=== PATIENT | male | born 1960 | race Caucasian/White ===

== ENCOUNTER 2019-07-09 21:25 | Inpatient (IN) | payer OTHER ==
[~2019-07-09 21:25] MED LIST: Iopamidol-370 76% 500 ML 1 ML ONE
[2019-07-09 22:05] LABS: #Basophils 0.1 thou/uL (0.0-0.2); #Eosinphils 0.5 thou/uL (0.0-0.7); #Lymphocytes 3.1 thou/uL (1.20-3.40); #Monocytes 1.2 thou/uL (0.11-0.59); #Neutrophils 7.8 thou/uL (1.40-6.50); %Basophils 0.9 % (0.0-1.0); %Eosinophils 3.8 % (0.0-10.0); %Lymphocytes 24.7 % (21.0-51.0); %Monocytes 9.2 % (0.0-10.0); %Neutrophils 61.4 % (42.0-75.0); Hemoglobin 15.6 g/dL (14.0-18.0); Mean Corpuscular HGB CONC 32.6 g/dL (32.0-36.0); Mean Corpuscular Hemoglobin 31.1 pg (27.0-31.0); Mean Corpuscular Volume 95.4 fL (78.0-98.0); Mean Platelet Volume 7.9 fL (7.4-10.4); Platelet Count 507 thou/uL (130-400); RBC Distribution Width 11.8 % (11.5-14.5); Red Blood Cell (RBC) Count 5.02 mill/uL (4.70-6.10); White Blood Cell (WBC) Count 12.6 thou/uL (4.8-10.8)
[2019-07-09 22:25] LABS: ALT (SGPT) 13 U/L (8-55); AST (SGOT) 21 U/L (5-34); Albumin 3.9 g/dL (3.5-5.0); Alkaline Phosphatase 71 U/L (40-110); Anion Gap 13 mmol/L (10-20); BUN (Urea Nitrogen) 12 mg/dL (8.4-25.7); Bilirubin, Total 0.5 mg/dL (0.2-1.2); Calc. Creatinine Clearance 0 mL/min (70-130); Calcium 10.8 mg/dL (7.8-10.44); Carbon Dioxide 25 mmol/L (22-29); Chloride 102 mmol/L (98-107); Estimated GFR-MDRD 82; Globulin 4.3 g/dL (2.4-3.5); Glucose 78 mg/dL (70-105); Potassium 4.1 mmol/L (3.5-5.1); Protein, Total 8.2 g/dL (6.0-8.3); Sodium 136 mmol/L (136-145)
[2019-07-09] MEDS ORDERED: Ondansetron PF 4 MG/2 ML Vial ONE (22:29)
[2019-07-09 22:46] LABS: INR-International Normal Ratio 1.1; PTT 45.5 SEC (22.9-36.1); Prothrombin Time 14.4 SEC (12.0-14.7)
--- NOTE | 2019-07-09 22:46 | RAD ---
EXAM: Two views chest PROVIDED CLINICAL HISTORY: Cough COMPARISON: 10/25/2006. FINDINGS: There is dense opacity seen within the right upper lung zone with shift of the mediastinal structures to the right. There is question of spiculated density in the right infrahilar region. There is elevation of the lateral right hemidiaphragm which could be related to right pleural effusion versus pleural and parenchymal scarring. The left lung is clear. The cardiac silhouette is at the upper limits of normal in size. Surgical cl ips overlie the right upper quadrant. No other interval change. IMPRESSION: Opacification right mid and upper lung zones with shift of mediastinal structures to the right. There is question of spiculated density at the right lung base, and there is elevation the right lateral hemidiaphragm with blunting the right lateral costophrenic angle. While findings could be related to postsurgical changes and scarring, a right hilar mass with postobstructive changes right upper lung zone are a possibility. Correlation with history is recommended. If more recent chest x-rays are avai lable for comparison, this would be helpful. However, if no recent prior studies are available for comparison, CT thorax is recommended.
[2019-07-09 23:00] LABS: CK (CPK) 79 U/L (30-200); Lipase 11 U/L (8-78)
--- NOTE | 2019-07-09 23:58 | CT ---
CT NECK WITH IV CONTRAST: HISTORY: Hemoptysis. Generalized weakness. Decreased appetite for one month. The patient reports a recent diag nosis of pneumonia. COMPARISON: None. FINDINGS: The bilateral parotid glands and submandibular glands demonstrate a normal CT appearance. The thyroid gland is normal in appearance. The prevertebral space as well as parapharyngeal spaces have a normal appearance. Carotid spaces are normal in appearance bilaterally. The pharynx and hypopharynx have a normal appearance. No enlarged lymph nodes are seen by CT size criteria within the neck bilaterally. There is complete opacification of the left maxillary antrum. There is generalized heterogeneity with a mass-like appearance involving the right upper lung zone. A n aerated lung is not seen in the right lung apex. Enlarged right paratracheal lymph nodes are seen, each measuring 1.8 cm in short axis dimension. The visualized left upper lobe is clear. IMPRESSION: 1. Mass-like heterogeneity occupying the visualized right upper lung zone with low density areas as w ell as areas of increased density. This area is incompletely imaged or evaluated. Please see CTA ches t for further details. Findings are worrisome for a neoplastic process with lymphadenopathy in a righ t paratracheal location. 2. No mass or lymphadenopathy is seen in the neck bilaterally. 3. Complete opacification of the left maxillary antrum. POS: [facility]
--- NOTE | 2019-07-10 00:14 | CT ---
CT ANGIOGRAM THORAX WITH IV CONTRAST AND 3D RECONSTRUCTIONS: HISTORY: Hemoptysis and generalized weakness. Decreased appetite for one month. FINDINGS: There is a mass-like density seen within the right upper lobe and in the right hilar region, and no a erated lung is seen within the right lung apex. Findings are worrisome for a neoplastic process with post obstructive changes. There are low density areas seen within the area of mass like density in th e right lung apex. Post obstructive infectious process could not be entirely excluded. The right sandie r mass-like density measuring 6.6 cm in maximal dimensions, and the right upper lobe bronchus is not visualized secondary to this mass. As noted on the CT scan of the neck also obtained on this date, there are enlarged right paratracheal lymph nodes seen, the largest measuring 2.2 cm in short axis dimension. Mass-like density in the rig ht hilar region does extend into the precarinal region. There is a small to moderate sized pericardial effusion identified. There is decreased density seen p osterior to the level of the left atrium, which extends inferiorly ad may represent a prominent peric ardial recess or pericardial cystic structure. There is volume loss present in the right lower lobe. The left lung is clear without evidence of a mass, pulmonary nodule or consolidation. The right upper lobe pulmonary artery is severely attenuated and likely occluded due to the right hil ar mass. There are otherwise no filling defects seen within the pulmonary arteries to suggest a pulmo nary embolus. The thoracic aorta is normal in caliber without evidence of aortic dissection. Vascular calcification s are seen scattered within the thoracic aorta. There is an enlarged right axillary lymph node measuring 1.5 cm in short axis dimension. The visualized upper abdomen demonstrates post surgical changes of the liver with mild enlargement of the left hepatic lobe. There is an enlarged axillary lymph node seen inferiorly, measuring 1.5 cm in short axis dimension. IMPRESSION: 1. Right hilar mass, which extends into the right upper lobe. the most superior extent is difficult t o delineate. However, this mass measures at least 6.6 cm in AP dimensions. There are post obstructive changes involving the right upper lobe and right lung apex with low density areas seen in the consol idated right lung apex. Findings are likely related to post obstructive changes and post obstructive infectious process cannot be entirely excluded. 2. Mediastinal lymphadenopathy with enlarged right axillary lymph node. 3. Severe attenuation and likely amputation\occlusion of the right upper lobe pulmonary artery. There is otherwise no filling defects to suggest a pulmonary embolus. 4. Small to moderate pericardial effusion. 5. Low density area seen posterior to the lower portion of the left atrium, within the mediastinum. T his may represent a pericardial cystic structure. 6. Atelectasis right lung base. 7. Post surgical changes of the liver with hypertrophy of the left hepatic love. POS: [facility]
--- NOTE | 2019-07-10 00:27 | CT ---
CT ABDOMEN AND PELVIS WITH IV CONTRAST: HISTORY: Hemoptysis and generalized weakness with decreased appetite. COMPARISON: Noncontrast CT abdomen and pelvis on 03/26/2015. FINDINGS: As noted on prior examination, there is a moderate sized pericardial effusion with low density struct ure seen in the posterior mediastinum, to the right of midline, which was also seen on the prior stud y but larger in size on today's exam. This could be related to a pericardial cystic lesion. Again noted are post surgical changes involving the right hepatic lobe with compensatory hypertrophy involving the left hepatic lobe. There is a lobulated contour of the liver, which could be related to cirrhosis. There is a subtle low density area seen within the left hepatic lobe, medially, which was better delineated on the prior noncontrasted exam but is smaller in size, measuring 1.2 cm. An addit ional discrete hepatic lesion is not appreciated. There is an enlarged pre-caval lymph node seen in the region of the miguel hepatis which measures 4.7 cm x 2.9 cm. To the right of and immediately adjacent to this enlarged lymph node and inferior to the liver is a hypodense collection that measures 7.3 cm x 4.3 cm which does not demonstrate fluid atten uation. This was not seen on the prior exam, and the exact etiology is uncertain. This does result in slight mass effect on the adjacent loops of small bowel without obstruction. The spleen is surgically absent. The tail of the pancreas is atrophic or surgically absent as well. The bilateral adrenal glands have a normal CT appearance. There is cortical scarring involving the mid portion and inferior pole right kidney with atrophy of a portion of the right kidney. Mild scarring is seen at the inferior pole left kidney. Vascular calcifications are seen in the abdominal aorta and iliac arteries. The urinary bladder has a normal CT appearance. The appendix is visualized and normal in caliber. Increased density material is seen within the appen yue. Degenerative changes are seen in the spine. No suspicious lytic or sclerotic osseous lesions are iden tified. IMPRESSION: 1. Lymphadenopathy in a pre-caval location, in the region of miguel hepatis with closely adjacent mild ly increased density fluid collection. This increased density fluid collection is of uncertain etiolo gy but measures 7.3 cm in maximal dimensions. 2. Post surgical changes, right hepatic lobe, with compensatory hypertrophy involving the left hepati c lobe and caudate lobe of the liver. There is a lobulated appearance of portions of the liver which could be secondary to post surgical changes but cirrhosis is not entirely excluded. 3. Scarring involving the kidneys bilaterally, greater on the right, with atrophy of a portion of the right kidney. 4. Small to moderate sized pericardial effusion. There is a small fluid density structure in the post erior mediastinum, to the right of midline, just inferior to the level of the left atrium. This was a lso present on the prior exam but this has increased in size compared to the prior study. 5. Post surgical changes related to splenectomy and cholecystectomy as well as wedge resection involv ing the right hepatic lobe. The tail of the pancreas is also likely surgically absent or atrophic. 6. Volume loss, right lung base. Above findings, including CTA chest, were discussed with Dr. Frias in the emergency department on 07/10/2019 at 0003 hours. POS: [facility]
[2019-07-10] MEDS ORDERED: Acetaminophen 325 MG TAB PO PRN (02:14)
[2019-07-10] MEDS ORDERED: Albuterol Sulfate 2.5 mg/3 ml Neb NEB PRN (02:16)
--- NOTE | 2019-07-10 03:32 | HP ---
PRIMARY CARE PHYSICIAN: Vidal Villalpando MD Patient's local oncologist, Dr. Cortes. Patient's medical oncologist, Dr. Lorenzo, at [facility]. CHIEF COMPLAINT: Intermittent hemoptysis times weeks, fatigue, weakness, anorexia. HISTORY OF PRESENT ILLNESS: A 58-year-old male with past medical history of pancreatic metastatic neuroendocrine cancer diagnosed in 2006, who thereafter underwent chemotherapy for 13 months with 5-FU and "cahto" with extensive surgery in August 2008 and subsequent cancer recurrence one year later, who has been on and off chemotherapeutic agents, most recently discontinued off oral capecitabine and oral temozolomide in February [address] chest, abdomen, pelvis at that time revealed progression of metastatic disease, who presents to [facility] ER for several week history of intermittent teaspoon-sized hemoptysis that worsened today up to 10 episodes and prodromal complaints of dyspnea, cough, fatigue, generalized weakness anorexia, constipation, and 20-30 pounds weight loss in the past several weeks, prompting further ED evaluation. The patient reports seeing his primary care physician several weeks ago and being diagnosed with bronchitis and with repeated evaluation of PCP and completing a two week course of oral antibiotics, unknown type, with no significant improvement in patient's symptoms. In the emergency room, H and H were 15.6 and 47.9 with INR of 1.1 and normal oxygen saturation. One-view chest x-ray suggested opacifications of the right mid and upper lung zone with mediastinal shift to the right. A followup CTA chest and thorax revealed a masslike density in the right upper lobe and in the right hilar region with no aerated lung seen within the right lung apex, worrisome for a neoplastic process with postobstructive changes and with hilar mass-like density measuring 6.6 cm in maximal dimensions with nonvisualization of right upper lobe bronchus, as well as enlarged paratracheal lymph nodes with largest measuring 2.2 cm, as well as a small to moderate size pericardial effusion. CT abdomen and pelvis on 07/09/2019 revealed lymphadenopathy in the precaval location in the region of the miguel hepatis, measuring 4.7 x 2.9 cm with an inferior hypodense collection 7.3 cm x 4.3 cm without fluid attenuation. Lastly, CT soft tissue neck suggested no mass or lymphadenopathy in bilateral neck region and redemonstration of mass-like heterogeneity in the right upper lung zone, worrisome for neoplastic process with lymphadenopathy in the right paratracheal location. On-call dust collector ore crushing was consulted and the patient admitted as inpatient status and placed on threat monitoring analyst for further evaluation. At bedside, the patient is accompanied by his spouse, who corroborates history. He underwent a CT chest, abdomen, pelvis on 03/01/2019, by Medical Oncologist Dr. Lorenzo at [facility] with report shown to me on phone with noted pulmonary nodules but no right hilar mass structure seen at that time. Unchanged fluid collection with approximately similar dimensions in abdomen was noted at that time. The patient reports inability to see his oncologist in June due to scheduling conflicts and has next appointment scheduled in August 2019. He reports no recent PET scan. He denies any complaints of near syncope or syncope. He denies any use of home oxygen. He does not have advanced directives and states he will need to discuss this with his spouse, who is at bedside. His spouse is a surrogate decision maker. 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 PAST SURGICAL HISTORY: Extensive surgical resection in August 2008 for cancer , postoperative small bowel obstruction. SOCIAL HISTORY: The patient admits to prior tobacco and alcohol use, stopping 21/12. He denies any current tobacco use. He is ambulatory without assistive device. He does not use home oxygen. ALLERGIES: PENICILLIN. REVIEW OF SYSTEMS: Pertinent positives as per HPI. Remainder of review of systems negative. The patient reports having black tarry stools noted several days ago , but none currently. HOME MEDICATIONS: Reviewed as per admission medication reconciliation once this is appropriately reconciled. FAMILY HISTORY: Dad from lung cancer. The patient's sister has unspecified cancer. PHYSICAL EXAMINATION: VITAL SIGNS: Temperature 98.5, pulse 115, sinus tachycardia, blood pressure 110 /70 to 130/76, oxygen saturation 92% to 94% on room air, 97% on 2 L nasal cannula. Respirations 18 to 20, unlabored. GENERAL APPEARANCE: An elderly male, who is awake, alert, oriented, coherent, lucid, not in any obvious distress, speaking in full complete sentences. HEENT: Normocephalic, atraumatic. No facial asymmetry. Mucous membranes appear moist. NECK: Supple. No palpable adenopathy. CARDIOVASCULAR: S1, S2. Tachycardic. No harsh murmurs. No reproducible chest wall tenderness. LUNGS: Nonlabored respiration on bilateral posterior auscultation. There is decreased breath sounds in the right lung with no expiratory wheezing noted. ABDOMEN: Soft, mildly distended. Nontender to palpation. EXTREMITIES: No edema, cyanosis, or deformities noted. SKIN: Warm to touch without rash or pallor or abrasion. LABORATORY DATA: Troponin negative x1. WBC 12.6, H and H 15.6/47.9, platelets 507. Sodium 136, potassium 4.1, chloride 102, bicarb 25, glucose 78, BUN and creatinine 12/0.84, GFR 82. LFTs unremarkable. Lipase 11. Troponin negative. BNP 16. IMAGING DATA: 1. Chest x-ray AP, lateral notes opacification in the right mid and upper lung zones with a shift of mediastinal structures to the right with a question of spiculated density in the right lung base and elevation of the right lateral hemidiaphragm with blunting of the right lateral costophrenic angle. 2. CTA chest, thorax reveals a right hilar mass extending into the right upper lobe wi th the most superior extent difficult to delineate. Mass measures at least 6.6 cm in anterior-posterior dimensions. Postobstructive changes involving the right upper lobe and right lung apex with a low-density area seen in the right lung apex. Mediastinal lymphadenopathy. Wcolt-ct-rodwdbiv pericardial effusion. Severe attenuation likely amputation in the right upper lobe pulmonary artery with no filling defect to suggest PE. Suggestive of pericardial cystic structure. 3. CT abdomen and pelvis 07/09/2019, reveals precaval lymphadenopathy 4.7 x 3 cm. Inferior to liver is hypodense area of 7.3 x 4.3 cm. Remainder of findings noted. ASSESSMENT: 1. Hemoptysis, suspected secondary to metastatic pancreatic neuroendocrine cancer with new right upper lob obstructing lung mass. The patient was admitted as inpatient status. CTA chest and thorax results noted. Loom Changeover Operator consulted for further evaluation. Hold patient's home aspirin 81 mg. Noted concerns of obstructing right upper lobe mass with concerns for postobstructive areas. Start p.r.n. nebulized bronchodilators. Await Pulmonology recommendations for medication optimization and to assess for need of any possible bronchoscopy to evaluate for endovascular lesions or bleeding. Monitor serial H and H. 2. Metastatic pancreatic neuroendocrine cancer. The patient follows with oncologist at [facility], Dr. Lorenzo, and locally Dr. Cortes. He reports diagnosis in 2006, requiring 13 months of chemotherapy with extensive surgery in August 2008 and tumor recurrence one year later and has been on and off therapies. Most recently discontinued of oral capecitabine and oral temozolomide in February 2019. His last CT chest, abdomen, pelvis was done on 03/01/2019. He has not had a PET scan in sometime. We will consult the patient's local oncologist to discuss prognosis and potential palliative treatment options for an outpatient basis, as well as coordinate any outpatient imaging test. 3. Sinus tachycardia, likely reactive to #1 and #2. Monitor oxygen levels for appropriate saturation. 4. Possible post obstructive pneumonia. The patient recently completed a course of oral antibiotics, unknown type. He is noted to have penicillin allergy. We will await pulmonology input regarding need for additional antibiotic therapies for temporizing measures. 5. History of diabetes mellitus. 6. History of dyslipidemia. Deep venous thrombosis prophylaxis, SCDs. Avoid chemical anticoagulation due to hemoptysis. Code status: Full code as discussed with the patient. The patient does not have any advanced directives and will discuss with his spouse. His spouse, Nyasia , is surrogate decision maker. Check a.m. labs. DISPOSITION: Inpatient telemetry admission. Job ID: [id number] [facility]
[2019-07-10] MEDS ORDERED: Ondansetron PF 4 MG/2 ML Vial IVP PRN (07:31)
[2019-07-10] MEDS ORDERED: Ondansetron ODT 4 MG TAB PO PRN (07:31)
[2019-07-10] MEDS ORDERED: HYDROcodone/Acetaminophen 5/325 mg Tablet PO PRN (07:31)
[2019-07-10] MEDS ORDERED: HYDROcodone/Acetaminophen 7.5/325 mg Tablet PO PRN (07:31)
[2019-07-10] MEDS ORDERED: Melatonin 3 MG TAB PO PRN (07:33)
[2019-07-10] MEDS ORDERED: Benzonatate 100 MG CAP PO PRN (07:33)
[2019-07-10] MEDS ORDERED: diphenhydrAMINE 25 MG CAP PO PRN (07:33)
[2019-07-10] MEDS ORDERED: Docusate 100 MG CAP PO PRN (07:33)
[2019-07-10] MEDS ORDERED: Labetalol HCl 100 MG/20 ML VIAL SLOW IVP PRN (07:33)
[2019-07-10] MEDS ORDERED: Famotidine/PF 20 mg/2ml Vial SLOW IVP SCH (09:00)
[2019-07-10] MEDS ORDERED: Famotidine/PF 20 mg/2ml Vial ONE (09:26)
--- NOTE | 2019-07-10 10:14 | CON ---
DATE OF CONSULTATION: HISTORY OF PRESENT ILLNESS: Regino Griffin is a 58-year-old gentleman who sees [facility] for metastatic pancreatic cancer who presented with almost a month history of hemoptysis. He saw his primary care physician where several sets of chest x-ray were taken, which showed pneumonia. He was given antibiotics. Hemoptysis persisted. He came in last night with more blood, maybe several tablespoon. He has received chemotherapy at [facility]. His last CT imaging studies in February 2019 showed evidence of metastatic disease. He is due to have to have further workup done in last week when he apparently he did not make it up there. Former smoker, quit smoking many years ago, pack a day for 30 years. Denies any fever or chills. He has had neuroendocrine pancreatic cancer, status post resection in 2006 followed by chemotherapy. He denies any weight loss. PAST MEDICAL HISTORY: Pertinent for: 1. Metastatic pancreatic neuroendocrine cancer. 2. Diabetes. PREVIOUS SURGERIES: Bowel resection, pancreatic cancer surgery. 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 No alcohol abuse. Home medicine unknown at this time. ALLERGIES: TO PENICILLIN. REVIEW OF SYSTEMS: Otherwise, unremarkable. PHYSICAL EXAMINATION: GENERAL: He is in no distress, sitting on the side of the bed, sats 95%, pulse 80, blood pressure CHEST: No wheezing, crackles. CARDIAC: Normal S1, S2. ABDOMEN: Negative mass. LABORATORY DATA: White count 12,000, H is H is 15 and 47, platelet count is 507. Lytes are normal. Calcium is 10.8, slightly elevated. Albumin is normal. Chest x-ray shows a large right upper lung mass. CT of the abdomen and pelvis adenopathy in the miguel hepaticus area. Postsurgical changes, scarring in the kidneys, moderate-size pericardial effusion, status post splenectomy, cholecystectomy. CT chest shows mediastinal adenopathy, right hilar mass, right upper lobe atelectatic mass 6 cm. Again noted was several mediastinal adenopathy. Soft tissue neck CT was done. No PE was seen. IMPRESSION: 1. Metastatic neuroendocrine disease to the lung and miguel hepatic area. 2. Diabetes. 3. Former smoker. PLAN: The patient was given option to be transferred to [facility]. bronchoscopy locally. Appeared to be stable to be transferred out of this area to [facility] if he wants further workup there since his primary doctor is over there. In the meantime, supportive care. Await input from Oncology. Consultation note, 70 minutes, 50% direct patient care. Job ID: [id number]
[2019-07-10] MEDS ORDERED: Loratadine 10 MG TAB PO PRN (14:17)
--- NOTE | 2019-07-10 14:22 | PDOC.EVN ---
Event Note - Event Note Event Note: Seen and examined in the emergency department. Went over home medications, home medications added. Some diabetes medications that we do not cover in hospital I have even the okay that he may take his home medication. There does not appear to be any acute bronchitis or pneumonia. Patient breathing comfortably on room air. At this point patient would like to follow up with his oncologist at [facility] is not interested in any aggressive measures, surgeries, or bronchoscopy's here in acute care hospital at this time. Anticipate discharge in the next 24 hours if okay with pulmonology and oncology.
[2019-07-10] MEDS ORDERED: metFORMIN 500 MG TAB PO SCH (17:00)
[2019-07-10] MEDS ORDERED: Metoprolol Tartrate 25 MG TAB PO SCH (21:00)
[2019-07-10] MEDS ORDERED: Rosuvastatin 10 MG TAB PO SCH (21:00)
[2019-07-10] MEDS ORDERED: Tamsulosin HCl 0.4 MG CAP PO SCH (21:00)
--- NOTE | 2019-07-11 03:42 | DIS ---
DATE OF ADMISSION: 07/10/2019 DATE OF DISCHARGE: 07/10/2019 REASON FOR HOSPITALIZATION: Blood tinge in sputum. SIGNIFICANT FINDINGS: The patient was found to have newly diagnosed advancement of his known cancer with a newly found right hilar mass measuring 6.6 cm in AP dimensions. PROCEDURES PERFORMED AND TREATMENTS RENDERED: The patient having CT scans of the chest-please see full report for details, CT scans of the abdomen and pelvis-please see full report for details, and CT scans of the neck-please see full report for details. The patient having extensive chronic changes from known history of pancreatic neuroendocrine cancer and he is followed up well with his oncologist at [facility]. The patient has recently been diagnosed with bronchitis by his primary care physician and completed a course of antibiotics. With the patient completing a course of antibiotics, he has resolved his bronchitis. The patient's WBC count is 12, which is at the high end of normal. The patient is not having any anemia and his hemoglobin is 15.6. Although patient is having a small amount of blood tinge to his cough and sputum, it is not significant to the point where he is having any anemia. The patient is breathing comfortably on room air. The patient is talking in full sentences and it does not cause him any discomfort at baseline, and the patient is eating and drinking fine. The patient's platelet count is stable at 507. The patient does not have any coagulopathy and his PT is 14.4, his INR is 1.1, his PTT is normal at 45.5. The patient had a complete metabolic panel, which demonstrated preserved electrolytes and normal renal function with a creatinine of 0.94. The patient with normal liver function tests. The patient with negative cardiac enzymes. The patient with normal lipase. The patient was seen and evaluated by lecturer of portuguese-please see full consultation note from Dr. Gunter for details. Dr. Gunter agrees that the patient has good followup with his primary oncologist and pulmonology team at [facility], and he should follow up with them for future care. The patient was able to call into his oncologist and he has an appointment for tomorrow on 07/11/2019 with his oncologist at [facility]. Given this new information, the patient was recommended safe for discharge with close followup with his primary oncology team at [facility] tomorrow. Again, there is no reason for acute hospitalization that would warrant further inpatient therapy. The patient is breathing on room air and not requiring supplemental oxygen. The patient is talking in full sentences. The patient is able to eat and drink without nausea or vomiting. The patient does not have any acute bronchitis or pneumonia as identified on CT scan of the chest and he does not need any further antibiotic or steroid therapy. Based on all of these findings, the patient was recommended safe for discharge to follow up tomorrow at [facility] with his oncologist. Given the fact that the patient has a newly identified tumor that has grown in the past 4 months, his oncologist may pursue further measures that might include chemotherapy, radiation, or even surgery. I recommended to the patient that he follow up with Dr. Lorenzo at [facility] tomorrow at his scheduled appointment. The patient states that he will comply with followup and see what Dr. Lorenzo could do to help him. CONDITION ON DISCHARGE: Stable. SPECIFIC INSTRUCTIONS FOR THE PATIENT/FAMILY: 1. The patient is recommended to follow up at his appointment tomorrow at [facility] with his oncologist, Dr. oLrenzo. 2. The patient is recommended to follow up with primary care physician in the next 5 to 7 days. 3. The patient is recommended to take all home medications as directed. 4. The patient is recommended to return to acute care hospital immediately if signs or symptoms return, worsen, or any other new symptoms occur. DISCHARGE MEDICATIONS: Please see full discharge medication list for details and there were no new prescriptions generated. Greater than 35 minutes spent coordinating care and discharge process for this patient. Job ID: [id number]
[2019-07-11] MEDS ORDERED: Fenofibrate Nanocrystallized 145 MG TAB PO SCH (09:00)
== END 2019-07-10 15:28 | disposition home or self-care (01) | DRG 181 ==
LOC: ERS 21:25 → ERHOLD 07-10 00:38
PROVIDERS: ADMIT Hospitalist; ATTEND Hospitalist
DX: C78.01 Secondary malignant neoplasm of right lung (principal); C25.9 Malignant neoplasm of pancreas, unspecified; C7A.1 Malignant poorly differentiated neuroendocrine tumors; C78.7 Secondary malignant neoplasm of liver and intrahepatic bile duct; E13.9 Other specified diabetes mellitus without complications; E78.5 Hyperlipidemia, unspecified; Z87.891 Personal history of nicotine dependence; Z88.0 Allergy status to penicillin
CPT/HCPCS: 36415; 70491; 71046; 71275; 74177; 80053; 82550; 83690; 83880; 84484; 85025; 85610; 85730; 86850; 86900; 86901; 93005; J2405; Q9967; S0028